=== PATIENT | male | born 1980 | race Caucasian/White ===

== ENCOUNTER 2017-02-20 12:27 | Emergency (ER) | payer SELFPAY ==
[~2017-02-20] VITALS: Ht 175.3 cm; Wt 79.4 kg
--- NOTE | 2017-02-20 12:37 | NUR ---
PT TUAN TO ER BED 15 ACCOMPANIED BY [employer]. HERE FOR OK TO BOOK. C/O LUE PAIN AND SWELLING FROM SHOOTING HEROIN. C/O MINIMAL PAIN. GOWNED AND PLACED ON MONITOR. AWAITING MD WARNER.
--- NOTE | 2017-02-20 12:40 | NUR ---
DR GUPTA AT BEDSIDE FOR EVAL.
[2017-02-20] MEDS ORDERED: PIPERACILLIN /TAZOBACTAM 3.375 G in IV D5W 50 ML IV ONE (13:00)
[2017-02-20] MEDS ORDERED: VANCOMYCIN 1 GM in IV D5W 250 ML IV ONE (13:00)
--- NOTE | 2017-02-20 13:15 | NUR ---
PIV STARTED BY BETTY GUPTA USING ULTRASOUND. PT IS AGITATED PULLED OUT HIS IV. DR GUPTA MADE AWARE.
[2017-02-20 13:21] LABS: BASOPHILS # (AUTO) 0.2 /CMM (0.0-0.2); BASOPHILS % (AUTO) 2.6 % (0.0-2.0); EOSINOPHILS % (AUTO) 0.6 % (0.0-6.0); HEMATOCRIT 37 % (39-51); HEMOGLOBIN 12.6 g/dL (13.5-17.5); LYMPHOCYTES # (AUTO) 1.3 /CMM (0.8-4.8); LYMPHOCYTES % (AUTO) 15.5 % (20.0-44.0); MEAN CORPUSCULAR HEMOGLOBIN 27 PG (26.0-33.0); MEAN CORPUSCULAR HGB CONC 34 g/dl (31.0-36.0); MEAN CORPUSCULAR VOLUME 80 fL (80-96); MONOCYTES # (AUTO) 0.4 /CMM (0.1-1.30); MONOCYTES % (AUTO) 5.2 % (2.0-12.0); NEUTROPHILS # (AUTO) 6.4 /CMM (1.8-8.9); NEUTROPHILS % (AUTO) 76.1 % (43.0-81.0); PLATELET COUNT (AUTO) 211 /CMM (150-450); RDW COEFFICIENT OF VARIATION 13.7 (11.5-15.0); RED BLOOD CELL COUNT(AUTO) 4.64 MIL/uL (4.5-6.0); WHITE BLOOD COUNT (AUTO) 8.3 K/uL (4.3-11.0)
--- NOTE | 2017-02-20 13:37 | NUR ---
RADIOLOGY AT BEDSIDE FOR LFA AND L HAND XRAY.
[2017-02-20 13:49] LABS: CALCIUM, SERUM 9.1 mg/dL (8.5-10.1); CREATININE 0.7 mg/dL (0.6-1.3)
[2017-02-20] MEDS ORDERED: CEPHALEXIN MONOHYDRATE 500 MG CAPSULE PO ONE (14:00)
[2017-02-20] MEDS ORDERED: SULFAMETH/TRIMETH 800/160 MG 1 UDTAB TABLET PO ONE (14:00)
--- NOTE | 2017-02-20 14:56 | NUR ---
Patient discharged to home in stable condition. Written and verbal after care instructions given. Patient verbalizes understanding of instruction.
[2017-02-20 14:57] VITALS: BP 125/80
== END 2017-02-20 14:57 | disposition home or self-care (01) ==
LOC: ER 12:28
DX: L03.114 Cellulitis of left upper limb (principal); F19.10 Other psychoactive substance abuse, uncomplicated; Z76.5 Malingerer [conscious simulation]
CPT/HCPCS: 36415; 36569; 73090; 73130; 80048; 82550; 85025; 99285; A4606; Z7610; J2543; J3370; J7060

== ENCOUNTER 2019-12-12 02:45 | Emergency (ER) | payer MEDICAID ==
[~2019-12-12] VITALS: Ht 175.3 cm; Wt 81.6 kg
--- NOTE | 2019-12-12 02:52 | NUR ---
PT CAME TO THE ED C/O BLE SWELLING AND PAIN X 4 DAYS. +REDNESS. PT AAOX4, VSS, RESPIRATIONS EVEN AND UNLABORED ON RA W/ NAD NOTED. PT CONNECTED TO THE MONITOR AND POX.
[2019-12-12 02:53] VITALS: BP 117/71
--- NOTE | 2019-12-12 02:55 | NUR ---
DR LINARES AT BEDSIDE
[2019-12-12] MEDS ORDERED: IBUPROFEN 600 MG TABLET PO ONE ×2 (03:00)
[2019-12-12] MEDS ORDERED: SULFAMETH/TRIMETH 800/160 MG 1 UDTAB TABLET PO ONE (03:00)
[2019-12-12] MEDS ORDERED: CEPHALEXIN MONOHYDRATE 500 MG CAPSULE PO ONE ×2 (03:00)
[2019-12-12] MEDS ORDERED: SULFAMETH/TRIMETH 800/160 MG 1 UDTAB TABLET ONE (03:01)
--- NOTE | 2019-12-12 03:33 | NUR ---
Patient discharged to home in stable condition. Written and verbal after care instructions given. Patient verbalizes understanding of instruction.
== END 2019-12-12 03:33 | disposition home or self-care (01) ==
LOC: ER 02:48
DX: L03.116 Cellulitis of left lower limb (principal)

== ENCOUNTER 2025-01-10 11:49 | Emergency (ER) | payer OTHER, MEDICAID ==
[~2025-01-10] VITALS: Ht 167.6 cm; Wt 81.6 kg
[2025-01-10] MEDS ORDERED: IBUPROFEN 400 MG TABLET ONE (12:01)
[2025-01-10] MEDS: IBUPROFEN 400 MG TABLET PO ONE (12:07)
[2025-01-10] MEDS ORDERED: DOXY100C2 PO (13:04)
[2025-01-10] MEDS ORDERED: CEPH-570 PO (13:04)
[2025-01-10 13:34] VITALS: BP 130/75; TEMP 98.7; O2SAT 99
== END 2025-01-10 13:42 ==
LOC: ER 11:54
DX: I83.009 Varicose veins of unspecified lower extremity with ulcer of unspecified site (principal); F19.10 Other psychoactive substance abuse, uncomplicated; M79.605 Pain in left leg; M79.604 Pain in right leg; Z65.3 Problems related to other legal circumstances; Z86.79 Personal history of other diseases of the circulatory system
CPT/HCPCS: 93970-TC